=== PATIENT | female | born 1995 | race African-American/Black ===

== ENCOUNTER 2019-12-15 11:20 | Inpatient (IN) | payer OTHER ==
[2019-12-15] MEDS ORDERED: PCA PUMP NR ONE (11:58)
[2019-12-15] MEDS ORDERED: FENTANYL/BUPIVACAINE/NS/PF - PCEA - 50 ML DISP.SYRIN EP ONE ×3 (11:58→18:31)
[2019-12-15] MEDS ORDERED: OXYTOCIN 30 UNITS in 0.9% NS 30 UNIT/500 ML INFUS.BAG IVPB SCH (12:00)
[2019-12-15] MEDS ORDERED: ELECTROLYTE-148 SOLN 1,000 ML IV SCH (12:00)
--- NOTE | 2019-12-15 12:05 | HP ---
Past Medical History - Primary Care Physician PCP:: Gabriel Conte - Admission Chief Complaint: labor pain q 3 min History of Present Illness: none History Source: Patient Limitations to Obtaining History: No Limitations - Past Medical History SPOT MAN: No: Alzheimer's, CVA, Dementia, Migraine, Multiple Sclerosis, Peripheral Neuropathy, Parkinson's, Seizure, Syncope, TIA, Vertigo, Other Cardiovascular: No: AFIB, Aneurysm, Aortic Insufficiency, Aortic Stenosis, CAD, CHF, Deep Vein Thrombosis, HTN, Hyperlipdemia, OH, Mitral Insufficiency, Mitral Stenosis, Murmur, Pulmonary Hypertension, Other Pulmonary: No: Asthma, Bronchitis, Cancer, COPD, O2 Dependent, Pneumonia, Previously Intubated, Pulmonary Embolus, Pulmonary Fibrosis, Sleep Apnea, Other Gastrointestinal: No: Ascites, Cancer, Constipation, Crohn's Disease, Diverticulitis, Diverticulosis, Esophageal Varices, Gastritis, GERD, GI Bleed, Hemorrhoids, Hiatal Hernia, Inflamatory Bowel Disease, Irritable Bowel Disease, Pancreatitis, Peptic Ulcer Disease, Ulcerative Colitis, Other Hepatobiliary: No: Cirrhosis, Cholelithiasis, Cholecystitis, Choledocholithiasis, Hepatitis A, Hepatitis B, Hepatitis C, Other Renal/: No: Renal Failure, Renal Inusuff, BPH, Cancer, Hematuria, Hemodialysis , Neurogenic Bladder, Renal Calculi, UTI, Other Reproductive: No: Ectopic , Endometriosis, Fibroids, PID, Polycystic Ovary Syndrome, Postmenopausal, Other ...Para: 0 Heme/Onc: No: Anemia, B12 Deficiency, Bleeding Disorder, Cancer, Current Chemotherapy, Current Radiation Therapy, Hemochromatosis, Hypercoaguable State, Myeloproliferative Synd, Sickle Cell Disease, Sickle Cell Trait, Thrombocytopenia, Other Infectious Disease: No: AIDS, C-Diff, Herpes Zoster, HIV, MRSA, STD's, Tuberculosis, VREF, Other Psych: No: Addictions, Anxiety, Bipolar, Depression, Panic, Psychosis, Schizophrenia, Other Musculoskeletal: No: Bursitis, Chronic low back pain, Hemiparesis, Hemiplegia, Osteoarthritis, Paraplegia, Other Rheumatology: No: Fibromyalgia, Gout, Lupus, Rheumatoid Arthritis, Sarcoidosis, Vasculitis, Other ENT: No: Allergic Rhinitis, Sinusitis, Other Endocrine: No: [place]'s Disease, Mara's Disease, Diabetes Insipidus, Diabetes Mellitus, Hyperparathyroidism, Hyperthyroidism, Hypothyroidism, Osteopenia, SIADH, Other Dermatology: No: Basal Cell, Cellulitis, Eczema, Melanoma, Psoriasis, Squamous Cell, Other - Past Surgical History Past Surgical History: No: None, AAA Repair, AICD, Amputation, Appendectomy, Arthrosocopy, AV Fistula/Graft, Bariatric Surgery, Breast Biopsy, Bypass, CABG, Carotid Endarterectomy, Cataract Removal, Cholecystectomy, Colectomy, Colonoscopy, Colostomy, Craniotomy, , Cystectomy, Hernia Repair, Hysterectomy, Ileal Conduit, Ileosotomy, Joint Replacement, Kidney Transplant, Laminectomy, Liver Transplant, Mastectomy, Nephrectomy, Oopherectomy, Orchiectomy, Permanent Pacemaker, Prostatectomy, Splenectomy, Stent, Thoracotomy, TURP, Tonsillectomy, Tubal Ligation, Upper Endoscopy, Valve Replacement, Vasectomy, Vein Stripping/Ligation Hx Myomectomy: No Hx Transabdominal Cerclage: No - Advance Directives Advance Directives: Yes: Living Will - Smoking History Smoking history: Never smoked Have you smoked in the past 12 months: No - Alcohol/Substance Use Hx Alcohol Use: No History of Substance Use: reports: None - Social History Usual Living Arrangement: Yes: Alone Do you think of yourself as: Straight/Heterosexual ADL: Independent History of Recent Travel: No Home Medications - Allergies Allergies/Adverse Reactions: Allergies Allergy/AdvReac Type Severity Reaction Status Date / Time No Known Allergies Allergy Verified 12/15/19 11:54 Family Medical History Family History: Denies Review of Systems - Review of Systems Constitutional: reports: No Symptoms Eyes: reports: No Symptoms HENT: reports: No Symptoms Neck: reports: No Symptoms Cardiovascular: reports: No Symptoms Respiratory: reports: No Symptoms Gastrointestinal: reports: No Symptoms Genitourinary: reports: No Symptoms Breasts: reports: No Symptoms Reported Musculoskeletal: reports: No Symptoms Integumentary: reports: No Symptoms Neurological: reports: No Symptoms Endocrine: reports: No Symptoms Hematology/Lymphatic: reports: No Symptoms Psychiatric: reports: No Symptoms Physical Exam - Maternity Constitutional: Yes: Well Nourished, No Distress, Calm Eyes: Yes: WNL, Conjunctiva Clear, EOM Intact HENT: Yes: WNL, Atraumatic, Normocephalic Neck: Yes: WNL, Supple, Trachea Midline Cardiovascular: Yes: WNL, Regular Rate and Rhythm Lungs: Clear to auscultation Breast(s): Yes: WNL - Abdominal Exam/OB Fundal Height: 38 Number of Fetuses: Single Presentation: Vertex Contractions: Yes Regularity: Regular Intensity: Mod/Strong Monitor Mode: External Heart Rate Location: [facility] Category: I Accelerations: Uniform - Vaginal Exam/OB Speculum Exam: No Dilatation (cm): 2 Effacement (%): 70 Amniotic Membrane Status: Intact Presentation: Vertex/Position Station: -1 - Physical Exam Musculoskeletal: Yes: WNL Extremities: Yes: WNL Edema: Yes Edema: LUE: 1+, RUE: 1+, LLE: 1+, RLE: 1+ Integumentary: Yes: WNL Deep Tendon Reflex Grade: Normal +2 ...Motor Strength: WNL Psychiatric: Yes: WNL, Alert, Oriented Hemorrhage Risk Assessment - Risk Factors Medium Risk Factors: Yes: None High Risk Factors: Yes: None Risk Score: 1 Risk Level: Medium Risk Assessment/Plan pt requests epidural, will continue laboring
[2019-12-15] MEDS ORDERED: BUPIVACAINE HCL/PF 0.25% (2.5MG/ML) 10 ML VIAL ONE (12:57)
[2019-12-15 13:17] VITALS: BMI 24.7
[2019-12-15 13:18] LABS: BASO % 0.4 % (0-2.0); EOS % 0.2 % (0-4.5); HEMATOCRIT 31.5 % (32.4-45.2); HEMOGLOBIN 10.6 GM/dL (10.7-15.3); LYMPH % 8.2 % (8-40); MCH 29.1 pg (25.7-33.7); MCHC 33.8 g/dl (32.0-36.0); MEAN CELL VOLUME 86.2 fl (80-96); MEAN PLT VOLUME 7.9 fl (7.5-11.1); MONO % 7.5 % (3.8-10.2); NEUT % 83.7 % (42.8-82.8); PLATELET COUNT 264 K/MM3 (134-434); RBC 3.65 M/mm3 (3.60-5.2); RDW 13.1 % (11.6-15.6); WHITE BLOOD COUNT 9.6 K/mm3 (4.0-10.0)
[2019-12-15] MEDS ORDERED: NALOXONE HCL 0.4 MG/ML VIAL IVPUSH PRN (13:28)
[2019-12-15 13:29] LABS: INR 0.96 (0.83-1.09); PROTHROMBIN TIME (PATIENT) 11.3 SEC (9.7-13.0)
[2019-12-15] MEDS ORDERED: FENTANYL/BUPIVACAINE/NS/PF - PCEA - 50 ML DISP.SYRIN EP SCH (13:30)
[2019-12-15 13:32] LABS: ACTIVATED PTT 30.2 SECONDS (25.2-36.5)
[2019-12-15 13:49] LABS: BLOOD UREA NITROGEN 4.7 mg/dL (7-18); CREATININE 0.6 mg/dL (0.55-1.3); POTASSIUM 3.6 mmol/L (3.5-5.1)
[2019-12-15] MEDS ORDERED: OXYTOCIN 30 UNITS in 0.9% NS 30 UNIT/500 ML INFUS.BAG IVPB ONE (15:36)
[2019-12-15] MEDS ORDERED: OXYTOCIN 20 UNITS in 0.9% NS 20 UNIT/1,000 ML INFUS.BAG IV ONE (19:47)
[2019-12-15] MEDS ORDERED: BENZOCAINE 28 GM HEMORRHOIDAL OINTMENT TP PRN (20:50)
[2019-12-15] MEDS ORDERED: BENZOCAINE 20% 57 GM BOTTLE TP PRN (20:50)
[2019-12-15] MEDS ORDERED: BISACODYL 10 MG SUPP.RECT RC PRN (20:50)
[2019-12-15] MEDS ORDERED: WITCH HAZEL 50% (TUCKS) 40 PAD/JAR PAD TP PRN (20:50)
[2019-12-15] MEDS ORDERED: oxyCODONE HCL 5 MG TABLET PO PRN (20:50)
[2019-12-15] MEDS ORDERED: METHYLERGONOVINE MALEATE 0.2 MG/1 ML AMP IM PRN (20:50)
--- NOTE | 2019-12-15 20:54 | PN ---
Progress Note (short form) - Note Progress Note: 730 pm, 10 cm, , ready to push
--- NOTE | 2019-12-15 20:55 | PN ---
Delivery - Delivery Vaginal Delivery: No Problems Type of Anesthesia: Epidural Episiotomy/Laceration: 1st degree EBL (cc): 200 Delivery, Single - Stages of Labor Date 1st Stage Initiatied: 12/15/19 Date 2nd Stage Initiated: 12/15/19 Date of Delivery: 12/15/19 Date Placenta Delivered: 12/15/19 Placenta: Yes: Spontaneous - Condition of Reception/Learning Operations Specialist Present: No Infant Gender: Female - [place] Feeding Plan Initial Plan: Exclusive throughout hospitalization
[2019-12-15] MEDS ORDERED: OXYTOCIN 20 UNITS in 0.9% NS 20 UNIT/1,000 ML INFUS.BAG IV SCH (21:00)
[2019-12-15] MEDS: IBUPROFEN 600 MG TABLET (FP) PO PRN (23:04)
[2019-12-15] MEDS: ACETAMINOPHEN 325 MG TABLET (FP) PO PRN (23:05)
[2019-12-16] MEDS: ACETAMINOPHEN 325 MG TABLET (FP) PO PRN ×3 (04:05→19:08)
[2019-12-16] MEDS: IBUPROFEN 600 MG TABLET (FP) PO PRN ×2 (04:06→11:13)
[2019-12-16 08:20] LABS: BASO % 0.1 % (0-2.0); HEMATOCRIT 29.8 % (32.4-45.2); LYMPH % 9.6 % (8-40); MCH 28.9 pg (25.7-33.7); MCHC 33.6 g/dl (32.0-36.0); MEAN CELL VOLUME 85.9 fl (80-96); MEAN PLT VOLUME 8.3 fl (7.5-11.1); MONO % 8.2 % (3.8-10.2); NEUT % 82.1 % (42.8-82.8); PLATELET COUNT 243 K/MM3 (134-434); RBC 3.47 M/mm3 (3.60-5.2); RDW 13.2 % (11.6-15.6)
[2019-12-16] MEDS: PRENATAL VITAMINS W/ FOLIC ACID TABLET (FP) PO SCH (11:13)
--- NOTE | 2019-12-16 15:04 | PN ---
Post Progress Note Post Day: 1 Type of Delivery: Vital Signs: Vital Signs Temperature 97.6 F 12/16/19 10:00 Pulse Rate 88 12/16/19 10:00 Respiratory Rate 20 12/16/19 10:00 Blood Pressure 114/58 L 12/16/19 10:00 O2 Sat by Pulse Oximetry (%) 100 12/15/19 22:00 Breast Exam: Yes: Soft Uterus: Yes: Fundus Firm, Fundus below umbilicus, Non-tender Abdomen/GI: Yes: Abdomen soft, Passing flatus, Tolerating PO Lochia: Yes: Serosa Lochia, amount: Small Extremities: Yes: Calves non-tender Perineum: Yes: Laceration Activity: Ambulating - Labs Labs: CBC WBC 13.0 K/mm3 (4.0-10.0) H 12/16/19 07:27 RBC 3.47 M/mm3 (3.60-5.2) L 12/16/19 07:27 Hgb 10.0 GM/dL (10.7-15.3) L 12/16/19 07:27 Hct 29.8 % (32.4-45.2) L 12/16/19 07:27 MCV 85.9 fl (80-96) 12/16/19 07:27 MCH 28.9 pg (25.7-33.7) 12/16/19 07:27 MCHC 33.6 g/dl (32.0-36.0) 12/16/19 07:27 RDW 13.2 % (11.6-15.6) 12/16/19 07:27 Plt Count 243 K/MM3 (134-434) 12/16/19 07:27 MPV 8.3 fl (7.5-11.1) 12/16/19 07:27 Absolute Neuts (auto) 10.7 K/mm3 (1.5-8.0) H 12/16/19 07:27 Neutrophils % 82.1 % (42.8-82.8) 12/16/19 07:27 Lymphocytes % 9.6 % (8-40) 12/16/19 07:27 Monocytes % 8.2 % (3.8-10.2) 12/16/19 07:27 Eosinophils % 0.0 % (0-4.5) D 12/16/19 07:27 Basophils % 0.1 % (0-2.0) 12/16/19 07:27 Nucleated RBC % 0 % (0-0) 12/16/19 07:27 Assessment/Plan dc pt home tomorrow
--- NOTE | 2019-12-16 15:28 | DS ---
Physical Exam-PUMP MACHINE OPERATOR Vital Signs: Vital Signs Temperature 98.6 F 12/16/19 14:00 Pulse Rate 76 12/16/19 14:00 Respiratory Rate 20 12/16/19 14:00 Blood Pressure 125/67 12/16/19 14:00 O2 Sat by Pulse Oximetry (%) 100 12/15/19 22:00 Constitutional: Yes: Well Nourished, No Distress, Calm Eyes: Yes: WNL, Conjunctiva Clear, EOM Intact HENT: Yes: WNL, Atraumatic, Normocephalic Neck: Yes: WNL, Supple, Trachea Midline Cardiovascular: Yes: WNL, Regular Rate and Rhythm Respiratory: Yes: WNL, Regular, CTA Bilaterally Gastrointestinal: Yes: WNL, Normal Bowel Sounds, Soft ...Rectal Exam: Yes: WNL Renal/: Yes: WNL Pelvis: Yes: WNL External Genitalia: Yes: Normal Internal Exam Deferred: Yes Vaginal Exam: Yes: Normal Cervix: Yes: Normal Uterus: Yes: Normal Adnexa: Normal: Bilateral ....Post : Yes: Uterus firm, Uterus non-tender Breast(s): Yes: WNL Musculoskeletal: Yes: WNL Extremities: Yes: WNL Edema: Yes Edema: LUE: 1+, RUE: 1+, LLE: 1+, RLE: 1+ Integumentary: Yes: WNL Wound/Incision: Yes: Clean/Dry, Well Approximated Neurological: Yes: WNL, Alert, Oriented ...Motor Strength: WNL Psychiatric: Yes: WNL, Alert, Oriented Labs: CBC, BMP 12/16/19 07:27 12/15/19 13:03 Delivery - Delivery Vaginal Delivery: No Problems Type of Anesthesia: Epidural Episiotomy/Laceration: Vaginal Extension/lac, 1st degree EBL (cc): 200 Delivery, Single - Stages of Labor Date 1st Stage Initiatied: 12/15/19 Time 1st Stage Initiated: 07:00 Date 2nd Stage Initiated: 12/15/19 Time 2nd Stage Initiated: 19:45 Date of Delivery: 12/15/19 Time of Delivery: 20:08 Time Placenta Delivered: 20:23 Placenta: Yes: Spontaneous - Condition of Buffer Machine/Lease Operator Present: No Infant Gender: Female Weight: 2.75 kg Position: Left, OA Total Hours ROM (Hrs/Mins): 7hr/38mins - 1 Minute Total Score: 9 5 Minutes Total Score: 9 - [place] Feeding Plan Initial Plan: Exclusive throughout hospitalization Discharge Summary Problems reviewed: Yes Reason For Visit: LABOR Procedures: Principal: Other Procedures: none Hospital Course: uneventful Health Concerns: none Plan of Treatment: oob as much as possible Goals: return to work in 6 weeks - Instructions Diet, Activity, Other Instructions: Physical activity Resume your normal everyday activity as tolerated no heavy lifting or exercise until seen by your surgeon. You may walk unlimited justus of and climb stairs. You may resume driving the car when you feel safe and comfortable behind the wheel. No sexual activity as instructed. Wound care If you have a bandage, leave it on, and keep dry for 48-72 hours. After that time discard the outer bandage. If they are tapes on the skin under the out of bandage leave them in place. They will peel off in the next 7 to 10 days. Do Not Peel them off. You may shower the day after surgery. If there are tapes present on the skin, you may shower over them. Diet There are no dietary restrictions. Eat healthy, high-fiber foods. Drink 6 to 8 glasses of liquid each day. This will assist in keeping your bowels are regular. Pain management You may take Tylenol or acetaminophen or Ibuprofen (for example, Motrin, Advil etc.) from my pain prescription medication is ordered should be taken as prescribed for moderate to severe pain. Call MD for any of the following: call dr pretty for 6 weeks appoint ment Severe pain not relieved by medication Fever of 101 or higher Excessive bleeding or drainage on dressing Inability to urinate Disposition: HOME - Home Medications Comprehensive Discharge Medication List: Ambulatory Orders Ferrous Sulfate [Feosol] 325 mg PO DAILY 12/15/19 Pnv No.95/Ferrous Fum/Folic AC [ Vitamin Tablet] 1 each PO DAILY 12/15/19 Prescription Drug Monitoring Program (I-STOP) results: I-STOP reviewed and no issues identified
[2019-12-16] MEDS ORDERED: SENNOSIDES/DOCUSATE COMBO (SENNA PLUS) TABLET (UD) PO PRN (22:00)
[2019-12-16 23:49] VITALS: TEMP 98.3
[2019-12-17] MEDS: ACETAMINOPHEN 325 MG TABLET (FP) PO PRN ×2 (00:05→08:17)
[2019-12-17] MEDS: IBUPROFEN 600 MG TABLET (FP) PO PRN ×2 (00:06→08:18)
[2019-12-17] MEDS: PRENATAL VITAMINS W/ FOLIC ACID TABLET (FP) PO SCH (09:37)
[2019-12-17 10:07] VITALS: BP 126/67; PULSE 81
== END 2019-12-17 11:40 | disposition home or self-care (01) | DRG 807 ==
LOC: JLDR 11:20 → J3W 21:43
PROVIDERS: ADMIT Obstetrics & Gynecology; ATTEND Obstetrics & Gynecology
PROC: 10E0XZZ Delivery of Products of Conception, External Approach (ICD-10-PCS; principal; 2019-12-15)
PROC: 0HQ9XZZ Repair Perineum Skin, External Approach (ICD-10-PCS; 2019-12-15)
DX: O70.0 First degree perineal laceration during delivery (principal); Z37.0 Single live birth; Z3A.38 38 weeks gestation of pregnancy
CPT/HCPCS: 36415; 59409; 80048; 85025; 85610; 85730; 86780; 86850; 86900; 86901; 87389